=== PATIENT | male | born 1940 | race Caucasian/White ===

== ENCOUNTER → 2017-06-02 | Outpatient (CLI) | payer OTHER ==
[~2017-06-02] MED LIST: DOXY100C2 PO; HYDR-309 PO; LISI1TAB13 PO
== END | disposition home or self-care (01) ==
LOC: OIH 12:52
PROVIDERS: ATTEND Nurse Practitioner Adult Health
DX: Z13.6 Encounter for screening for cardiovascular disorders (principal); J84.10 Pulmonary fibrosis, unspecified
CPT/HCPCS: 75571